=== PATIENT | female | born 1970 | race Caucasian/White ===

== ENCOUNTER 2023-06-03 09:22 | Day surgery (SDC) | payer OTHER ==
[~2023-06-03] VITALS: Ht 162.6 cm; Wt 89.8 kg
[2023-06-03] MEDS ORDERED: fentaNYL citrate 0.05 MG/ML VIAL ONE (11:42)
[2023-06-03] MEDS: fentaNYL citrate 0.05 MG/ML VIAL IVP ONE (11:47)
== END 2023-06-03 12:56 | disposition home or self-care (01) ==
LOC: MDS 09:22 → MMU 10:23 → MDS 12:56
PROVIDERS: ATTEND Internal Medicine Gastroenterology
DX: Z12.11 Encounter for screening for malignant neoplasm of colon (principal); F41.9 Anxiety disorder, unspecified; Z88.0 Allergy status to penicillin; Z79.899 Other long term (current) drug therapy; Z98.890 Other specified postprocedural states
CPT/HCPCS: 45378; J3010